=== PATIENT | female | born 2000 | race Caucasian/White ===

== ENCOUNTER 2024-09-17 08:14 | Emergency (ER) | payer MEDICAID, OTHER ==
[2024-09-17] MEDS: LORazepam 0.5 MG Tab PO ONE (08:31)
== END 2024-09-17 10:22 | disposition home or self-care (01) ==
LOC: VM.ED 08:14
DX: S01.01XA Laceration without foreign body of scalp, initial encounter (principal); E66.9 Obesity, unspecified; Z88.1 Allergy status to other antibiotic agents; Z88.5 Allergy status to narcotic agent; Z68.30 Body mass index [BMI] 30.0-30.9, adult; Y04.8XXA Assault by other bodily force, initial encounter
CPT/HCPCS: 12001; 70450; 70486; 99283; 99284; A9270

== ENCOUNTER 2025-06-02 00:50 | Emergency (ER) | payer MEDICAID ==
[2025-06-02 01:44] LABS: BASOPHILS ABSOLUTE AUTO 0.1 x10^3/uL (0.0-0.2); BASOPHILS PERCENT AUTO 0.6 % (0.2-1.2); EOSINOPHILS ABSOLUTE AUTO 0.2 x10^3/uL (0.0-0.5); EOSINOPHILS PERCENT AUTO 1.5 % (0.0-4.0); IMMATURE GRAN ABSOLUTE AUTO 0.01 x10^3/uL (0.00-0.07); IMMATURE GRAN PERCENT AUTO 0.10 % (0.00-0.43); LYMPHOCYTES ABSOLUTE AUTO 2.2 x10^3/uL (1.0-4.8); LYMPHOCYTES PERCENT AUTO 22.8 % (25.0-50.0); MONOCYTES ABSOLUTE AUTO 0.6 x10^3/uL (0.0-0.8); MONOCYTES PERCENT AUTO 6.5 % (2.0-11.0); NEUTROPHILS ABSOLUTE AUTO 6.7 x10^3/uL (1.8-7.7); NEUTROPHILS PERCENT AUTO 68.5 % (50.0-80.0); PLATELET COUNT,PLT 219 x10^3/uL (130-400); RED BLOOD CELL COUNT 4.15 x10^6/uL (4.00-5.50); WHITE BLOOD CELL COUNT,WBC 9.7 x10^3/uL (4.0-10.0)
[2025-06-02 02:01] LABS: INR 0.9 (0.9-1.1)
[2025-06-02 02:05] LABS: A/G RATIO 1.0; ALANINE AMINOTRANSFERASE,ALT 11.0 U/L (14-59); ASPARTATE AMNIOTRANSFERASE,AST 17.0 U/L (15-37); BILIRUBIN TOTAL 0.2 mg/dL (0.2-1.0); BLOOD UREA NITROGEN,BUN 18.0 mg/dL (7-18); CARBON DIOXIDE,CO2 24.0 mmol/L (21-32); CHLORIDE,CL 102.0 mmol/L (98-107); CREATININE 0.8 mg/dL (0.55-1.02); EST CRCL DRUG DOSING (CG) 87.38 mL/min; ESTIMATED GFR 104.0 mL/min (>=60); GLUCOSE RANDOM 93.0 mg/dL (70-99); POTASSIUM,K 3.7 mmol/L (3.5-5.1); PROTEIN TOTAL,TP 7.2 g/dL (6.4-8.2); SODIUM,NA 138.0 mmol/L (136-145)
== END 2025-06-02 03:01 | disposition home or self-care (01) ==
LOC: VM.ED 00:50
DX: O99.619 Diseases of the digestive system complicating pregnancy, unspecified trimester (principal); K80.50 Calculus of bile duct without cholangitis or cholecystitis without obstruction; E66.9 Obesity, unspecified; Z88.1 Allergy status to other antibiotic agents; Z88.5 Allergy status to narcotic agent; Z68.31 Body mass index [BMI] 31.0-31.9, adult; Z3A.00 Weeks of gestation of pregnancy not specified
CPT/HCPCS: 36415; 80053; 81025; 83690; 85025; 85610; 99284